=== PATIENT | female | born 1945 | race Caucasian/White ===

== ENCOUNTER 2023-05-29 15:52 | Inpatient (IN) | payer BC, MEDICARE ==
[~2023-05-29] VITALS: Ht 152.4 cm; Wt 37.9 kg
[2023-05-29] MEDS ORDERED: IOHEXOL 350 100 ML INFUS..BTL ONE (16:12)
[2023-05-29] MEDS ORDERED: SWABABLE VALVE TRANSFER SET EA MC ONE (16:12)
[2023-05-29] MEDS ORDERED: IV NORMAL SALINE 250 ML IV ONE (16:13)
[2023-05-29 16:17] LABS: BASOPHILS % (AUTO) 0.1 % (0.0-2.0); EOSINOPHILS # (AUTO) 1.9 K/uL (0.0-0.7); EOSINOPHILS % (AUTO) 12.2 % (0.0-7.0); HEMATOCRIT 25.4 % (31.2-41.9); LYMPHOCYTES # (AUTO) 4.9 K/uL (0.8-4.8); MEAN CORPUSCULAR HEMOGLOBIN 22.8 uug (24.7-32.8); MEAN CORPUSCULAR HGB CONC 29 g/dL (32.3-35.6); MEAN CORPUSCULAR VOLUME 77.8 fL (75.5-95.3); MONOCYTES # (AUTO) 0.8 K/uL (0.1-1.30); MONOCYTES % (AUTO) 4.9 % (0.0-11.0); NEUTROPHILS # (AUTO) 8.2 K/uL (1.8-8.9); NEUTROPHILS % (AUTO) 51.8 % (38.5-71.5); PLATELET COUNT (AUTO) 382 K/uL (179-408); RED BLOOD CELL COUNT(AUTO) 3.26 MIL/uL (3.63-4.92); RED CELL DISTRIBUTION WIDTH 18.3 % (12.3-17.7); WHITE BLOOD COUNT (AUTO) 15.9 K/uL (3.8-11.8)
[2023-05-29 16:19] LABS: DIFFERENTIAL COMMENT 1; HEMOGLOBIN 7.4 g/dL (10.9-14.3)
[2023-05-29 16:23] LABS: CALCIUM 8.8 mg/dL (8.5-10.1); CARBON DIOXIDE 20 mmol/L (21-32); CHLORIDE 97 mmol/L (98-107); CREATININE 1.2 mg/dL (0.6-1.3); GLUCOSE 100 mg/dL (74-106); POTASSIUM 2.9 mmol/L (3.5-5.1); SODIUM SERUM 130 mmol/L (136-145); UREA NITROGEN, BLOOD 9 mg/dL (7-18)
[2023-05-29 16:32] LABS: ALANINE AMINOTRANSFERASE 8 U/L (14-59); ALBUMIN 2.4 g/dL (3.4-5.0); ALKALINE PHOSPHATASE 101 U/L (50-136); ASPARTATE AMINOTRANSFERASE 6 U/L (15-37); BILIRUBIN,DIRECT 0.2 mg/dL (0.0-0.2); BILIRUBIN,TOTAL 0.3 mg/dL (0.2-1.0); TOTAL PROTEIN, SERUM 6.4 g/dL (6.4-8.2)
[2023-05-29] MEDS ORDERED: LIDO30AD10 TP (16:55)
[2023-05-29] MEDS ORDERED: PANT40TA49 PO (16:55)
[2023-05-29] MEDS ORDERED: CLOP75TA15 PO (16:55)
[2023-05-29] MEDS ORDERED: NIFE30TA91 PO (16:55)
[2023-05-29] MEDS ORDERED: MAG30ORA PO (16:55)
[2023-05-29] MEDS ORDERED: EPOE3000 SQ (16:55)
[2023-05-29] MEDS ORDERED: SENN8.6T19 PO (16:55)
[2023-05-29] MEDS ORDERED: FOLI0.8T43 PO (16:55)
[2023-05-29] MEDS ORDERED: ATOR40TA PO (16:55)
[2023-05-29] MEDS ORDERED: HYDR100T27 PO (16:55)
[2023-05-29] MEDS ORDERED: TRAM100T23 PO (16:55)
[2023-05-29] MEDS ORDERED: LEVO125T8 PO (16:55)
[2023-05-29] MEDS ORDERED: BISA10SU61 RC (16:55)
[2023-05-29] MEDS ORDERED: METO25TA6 PO (16:55)
[2023-05-29] MEDS ORDERED: CLON0.3P TD (16:55)
[2023-05-29] MEDS ORDERED: MIRT-121 PO (16:55)
[2023-05-29] MEDS ORDERED: IPRA0.2S48 NEB (16:55)
[2023-05-29] MEDS ORDERED: ACET-3117 PO (16:55)
[2023-05-29] MEDS ORDERED: HEPA500034 SQ (16:55)
[2023-05-29] MEDS ORDERED: POLY17PO4 PO (16:55)
[2023-05-29] MEDS ORDERED: ERGOCALCIFEROL PO (16:55)
[2023-05-29] MEDS ORDERED: ALBU2.5V38 NEB (16:55)
[2023-05-29] MEDS ORDERED: ALLO100T PO (16:55)
[2023-05-29] MEDS ORDERED: SEVE800T8 PO (16:55)
[2023-05-29] MEDS ORDERED: FERR325T28 PO (16:55)
[2023-05-29 17:02] LABS: ACETAMINOPHEN < 2.0 ug/mL (10-30); MAGNESIUM 1.7 mg/dL (1.8-2.4); PHOSPHOROUS 1.6 mg/dL (2.5-4.9)
[2023-05-29] MEDS ORDERED: MAGNESIUM SULFATE/D5W 100 ML IV SCH (17:15)
[2023-05-29] MEDS ORDERED: POTASSIUM PHOSPHATE MM 15 MMOL in IV NORMAL SALINE 250 ML IV ONE (17:15)
[2023-05-29] MEDS ORDERED: BISACODYL 10 MG SUPP.RECT RC PRN (18:00)
[2023-05-29] MEDS ORDERED: SENNOSIDES 1 TABLET PO PRN (18:00)
[2023-05-29] MEDS ORDERED: BLOOD SUGAR DIAGNOSTIC 1 EACH STRIP VI SCH (18:00)
[2023-05-29] MEDS ORDERED: ALBUTEROL SULFATE 2.5 MG/3 ML NEBU NEB PRN (18:00)
[2023-05-29] MEDS ORDERED: REMEDY ESSENTIAL ZINC PASTE 113 GM TP PRN (18:00)
[2023-05-29] MEDS ORDERED: CLONIDINE-TTS 3 PATCH TD SCH (18:00)
[2023-05-29] MEDS: ATORVASTATIN 40 MG TABLET PO SCH (18:00)
[2023-05-29] MEDS: MIRTAZAPINE 15 MG TABLET PO SCH (18:00)
[2023-05-29] MEDS ORDERED: ONDANSETRON 4 MG/2 ML VIAL IV PRN (18:00)
[2023-05-29] MEDS ORDERED: MAGNESIUM HYDROXIDE 30 ML LIQUID UDC PO PRN (18:00)
[2023-05-29] MEDS ORDERED: ACETAMINOPHEN 325 MG TABLET PO PRN (18:00)
[2023-05-29 18:30] LABS: CALCIUM 8.4 mg/dL (8.5-10.1); CARBON DIOXIDE 19 mmol/L (21-32); CHLORIDE 97 mmol/L (98-107); CREATININE 1.2 mg/dL (0.6-1.3); GLUCOSE 92 mg/dL (74-106); POTASSIUM 3.2 mmol/L (3.5-5.1); SODIUM SERUM 132 mmol/L (136-145); UREA NITROGEN, BLOOD 9 mg/dL (7-18)
[2023-05-29 18:35] LABS: ALANINE AMINOTRANSFERASE 13 U/L (14-59); ALBUMIN 2.4 g/dL (3.4-5.0); ALKALINE PHOSPHATASE 100 U/L (50-136); ASPARTATE AMINOTRANSFERASE 7 U/L (15-37); BILIRUBIN,TOTAL 0.3 mg/dL (0.2-1.0); TOTAL PROTEIN, SERUM 5.9 g/dL (6.4-8.2)
[2023-05-29 19:10] LABS: NT-PRO BNP 28745 pg/mL (0-125)
[2023-05-29 21:30] VITALS: BP 109/76; TEMP 97.6; O2SAT 91
[2023-05-29] MEDS: BLOOD SUGAR DIAGNOSTIC 1 EACH STRIP VI SCH (21:47)
[2023-05-30] VITALS (7 sets, daily range): BP systolic 123–171; BP diastolic 50–72; TEMP 97.5–98.8; O2SAT 92–100
[2023-05-30] MEDS: ACETAMINOPHEN 325 MG TABLET PO PRN (00:11)
[2023-05-30] MEDS: LEVOTHYROXINE SODIUM 125 MCG TABLET PO SCH (06:08)
[2023-05-30] MEDS: BLOOD SUGAR DIAGNOSTIC 1 EACH STRIP VI SCH ×3 (06:30→16:58)
[2023-05-30] MEDS ORDERED: TRAMADOL HCL 50 MG TABLET PO PRN (07:30)
[2023-05-30 07:32] LABS: BASOPHILS % (AUTO) 0.2 % (0.0-2.0); EOSINOPHILS # (AUTO) 0.1 K/uL (0.0-0.7); EOSINOPHILS % (AUTO) 0.8 % (0.0-7.0); HEMATOCRIT 24.3 % (31.2-41.9); LYMPHOCYTES # (AUTO) 0.4 K/uL (0.8-4.8); LYMPHOCYTES % (AUTO) 3.1 % (20.5-51.5); MEAN CORPUSCULAR HGB CONC 30 g/dL (32.3-35.6); MONOCYTES # (AUTO) 0.6 K/uL (0.1-1.30); MONOCYTES % (AUTO) 4.8 % (0.0-11.0); NEUTROPHILS # (AUTO) 11.2 K/uL (1.8-8.9); NEUTROPHILS % (AUTO) 91.1 % (38.5-71.5); PLATELET COUNT (AUTO) 362 K/uL (179-408); RED BLOOD CELL COUNT(AUTO) 3.16 MIL/uL (3.63-4.92); RED CELL DISTRIBUTION WIDTH 18.2 % (12.3-17.7); WHITE BLOOD COUNT (AUTO) 12.3 K/uL (3.8-11.8)
[2023-05-30 07:33] LABS: DIFFERENTIAL COMMENT 1; HEMOGLOBIN 7.3 g/dL (10.9-14.3)
[2023-05-30 07:44] LABS: CALCIUM 8.6 mg/dL (8.5-10.1); CARBON DIOXIDE 19 mmol/L (21-32); CHLORIDE 97 mmol/L (98-107); CREATININE 1.9 mg/dL (0.6-1.3); GLUCOSE 70 mg/dL (74-106); POTASSIUM 4.1 mmol/L (3.5-5.1); SODIUM SERUM 130 mmol/L (136-145); UREA NITROGEN, BLOOD 22 mg/dL (7-18)
[2023-05-30] MEDS: SEVELAMER CARBONATE 800 MG TABLET PO SCH ×4 (08:00→17:26)
[2023-05-30] MEDS: NIFEdipine XL 30 MG TABSR PO SCH ×3 (08:26→17:27)
[2023-05-30] MEDS: ALLOPURINOL 100 MG TABLET PO SCH ×2 (08:26→08:42)
[2023-05-30] MEDS: hydrALAZINE HCL 50 MG TABLET PO SCH ×4 (08:27→17:00)
[2023-05-30] MEDS: CLOPIDOGREL 75 MG TABLET PO SCH ×2 (08:27→08:41)
[2023-05-30] MEDS: PANTOPRAZOLE SODIUM 40 MG TABLET.DR PO SCH ×2 (08:27→08:42)
[2023-05-30] MEDS: METOPROLOL TARTRATE 25 MG TABLET PO SCH ×3 (08:28→17:27)
[2023-05-30] MEDS: MIRALAX 17 GM POWD.PACK PO SCH ×2 (08:28→08:41)
[2023-05-30] MEDS: LIDOCAINE 5% PATCH TD SCH (08:29)
[2023-05-30] MEDS: hydrALAZINE HCL 20 MG/1 ML VIAL IV PRN ×2 (08:45→15:30)
[2023-05-30] MEDS ORDERED: NIFEDIPINE PO SCH (09:00)
[2023-05-30] MEDS ORDERED: CLONIDINE-TTS 3 PATCH TD SCH (11:15)
[2023-05-30] MEDS: ATORVASTATIN 40 MG TABLET PO SCH (17:26)
[2023-05-30] MEDS: MIRTAZAPINE 15 MG TABLET PO SCH (17:27)
[2023-05-31] VITALS: BP 139/52; TEMP 98; O2SAT 98
[2023-05-31 04:00] VITALS: BP 138/50; TEMP 98; O2SAT 99
[2023-05-31] MEDS: BLOOD SUGAR DIAGNOSTIC 1 EACH STRIP VI SCH ×2 (06:16→14:18)
[2023-05-31] MEDS: LEVOTHYROXINE SODIUM 125 MCG TABLET PO SCH (06:16)
[2023-05-31] MEDS: ACETAMINOPHEN 325 MG TABLET PO PRN (06:21)
[2023-05-31 07:39] LABS: BASOPHILS % (AUTO) 0.4 % (0.0-2.0); EOSINOPHILS # (AUTO) 0.1 K/uL (0.0-0.7); EOSINOPHILS % (AUTO) 1.2 % (0.0-7.0); HEMATOCRIT 24.3 % (31.2-41.9); LYMPHOCYTES # (AUTO) 0.4 K/uL (0.8-4.8); LYMPHOCYTES % (AUTO) 4.3 % (20.5-51.5); MEAN CORPUSCULAR HGB CONC 30 g/dL (32.3-35.6); MONOCYTES # (AUTO) 0.4 K/uL (0.1-1.30); MONOCYTES % (AUTO) 4.5 % (0.0-11.0); NEUTROPHILS # (AUTO) 8.8 K/uL (1.8-8.9); NEUTROPHILS % (AUTO) 89.6 % (38.5-71.5); PLATELET COUNT (AUTO) 344 K/uL (179-408); RED BLOOD CELL COUNT(AUTO) 3.15 MIL/uL (3.63-4.92); WHITE BLOOD COUNT (AUTO) 9.8 K/uL (3.8-11.8)
[2023-05-31 07:43] LABS: DIFFERENTIAL COMMENT 1; HEMOGLOBIN 7.3 g/dL (10.9-14.3)
[2023-05-31 07:46] VITALS: BP 123/44; TEMP 97.8; O2SAT 99
[2023-05-31 07:52] LABS: CALCIUM 8.2 mg/dL (8.5-10.1); CARBON DIOXIDE 21 mmol/L (21-32); CHLORIDE 99 mmol/L (98-107); CREATININE 2.7 mg/dL (0.6-1.3); GLUCOSE 91 mg/dL (74-106); PHOSPHOROUS 5.5 mg/dL (2.5-4.9); POTASSIUM 4.4 mmol/L (3.5-5.1); SODIUM SERUM 130 mmol/L (136-145); UREA NITROGEN, BLOOD 30 mg/dL (7-18)
[2023-05-31] MEDS: METOPROLOL TARTRATE 25 MG TABLET PO SCH (09:49)
[2023-05-31] MEDS: hydrALAZINE HCL 50 MG TABLET PO SCH ×2 (09:49→14:04)
[2023-05-31] MEDS: LIDOCAINE 5% PATCH TD SCH (09:50)
[2023-05-31] MEDS: NIFEdipine XL 30 MG TABSR PO SCH (09:50)
[2023-05-31] MEDS: CLOPIDOGREL 75 MG TABLET PO SCH (09:50)
[2023-05-31] MEDS: ALLOPURINOL 100 MG TABLET PO SCH (09:50)
[2023-05-31] MEDS: MIRALAX 17 GM POWD.PACK PO SCH (09:50)
[2023-05-31] MEDS: PANTOPRAZOLE SODIUM 40 MG TABLET.DR PO SCH (09:50)
[2023-05-31] MEDS: SEVELAMER CARBONATE 800 MG TABLET PO SCH ×2 (09:52→14:03)
[2023-05-31 11:28] VITALS: BP 124/65; TEMP 98.4; O2SAT 97
[2023-05-31 15:33] VITALS: BP 117/66; TEMP 98.3; O2SAT 99
[2023-05-31] MEDS ORDERED: MIRTAZAPINE 15 MG TABLET PO SCH (21:00)
== END 2023-05-31 16:50 | DRG 304 ==
LOC: ER 15:52 → TELE-TD3 20:46
PROVIDERS: ADMIT Internal Medicine; ATTEND Internal Medicine
PROC: 5A1D70Z Performance of Urinary Filtration, Intermittent, Less than 6 Hours Per Day (ICD-10-PCS; principal; 2023-05-31)
DX: I16.1 Hypertensive emergency (principal); G93.41 Metabolic encephalopathy; N18.6 End stage renal disease; E87.1 Hypo-osmolality and hyponatremia; R65.10 Systemic inflammatory response syndrome (SIRS) of non-infectious origin without acute organ dysfunction; I12.0 Hypertensive chronic kidney disease with stage 5 chronic kidney disease or end stage renal disease; Z99.2 Dependence on renal dialysis; Z66 Do not resuscitate; D50.9 Iron deficiency anemia, unspecified; D63.1 Anemia in chronic kidney disease; D72.829 Elevated white blood cell count, unspecified; E03.9 Hypothyroidism, unspecified; E78.5 Hyperlipidemia, unspecified; F32.9 Major depressive disorder, single episode, unspecified; H51.8 Other specified disorders of binocular movement; I73.9 Peripheral vascular disease, unspecified; M10.9 Gout, unspecified; N25.0 Renal osteodystrophy; F32.A Depression, unspecified
CPT/HCPCS: 36415; 70450; 70496; 71045; 83735; 84100; 84443; 84484; 85025; 85730; 86850; 86900; 86901; 87040; 90937; 93005; A4663; G0378; J0360; J3475; J3490; J8499; Q9967